=== PATIENT | female | born 1940 | race Two or more races ===

== ENCOUNTER 2020-10-11 12:41 | Outpatient (CLI) | payer OTHER | END 2020-10-11 14:06 | disposition home or self-care (01) | LOC: OFIC 805 12:41 | PROVIDERS: ATTEND Otolaryngology | DX: T16.2XXA Foreign body in left ear, initial encounter (principal); T16.1XXA Foreign body in right ear, initial encounter; H91.8X3 Other specified hearing loss, bilateral ==

== ENCOUNTER 2020-10-23 13:11 | Outpatient (CLI) | payer OTHER | END 2020-10-23 15:32 | disposition home or self-care (01) | LOC: OFIC 805 13:11 | PROVIDERS: ATTEND Otolaryngology | DX: H90.3 Sensorineural hearing loss, bilateral (principal); R42 Dizziness and giddiness ==